=== PATIENT | male | born 1955 | race Two or more races ===

== ENCOUNTER 2024-08-23 14:01 | Inpatient (IN) | payer OTHER ==
[~2024-08-23] VITALS: Ht 160 cm; Wt 62.6 kg
[2024-08-23 18:30] VITALS: BP 135/76; PULSE 73; RESP 18; TEMP 98; O2SAT 98
[2024-08-23] MEDS ORDERED: DEXTROSE 50%-WATER 25 GM/50 ML SYRINGE IVP PRN (18:30)
[2024-08-23] MEDS ORDERED: ACETAMINOPHEN 325 MG TABLET PO PRN (18:30)
[2024-08-23] MEDS: ETHYL ALCOHOL 62% ANTISEPTIC NASAL SANITIZER 0.6 ML AMPUL NASAL SCH (20:51)
[2024-08-23] MEDS: INSULIN LISPRO 100 UNITS/ML SQ PRN (20:51)
[2024-08-23] MEDS: FAMOTIDINE 20 MG TABLET PO SCH (20:51)
[2024-08-23] MEDS: LevETIRAcetam 500 MG TABLET PO SCH (20:52)
[2024-08-23] MEDS: DEXAMETHASONE 4 MG TABLET PO SCH (20:52)
[2024-08-23 20:54] VITALS: BP 138/70; PULSE 74; RESP 18; TEMP 97.9; O2SAT 99
[2024-08-23 22:26] LABS: GLUCOMETER DEV NAME(LOC) 2WR.2B; GLUCOSE,POINT OF CARE 210 MG/DL (70-110)
[2024-08-24 05:50] VITALS: O2SAT 99
[2024-08-24 06:45] LABS: GLUCOMETER DEV NAME(LOC) 2WR.1D; GLUCOSE,POINT OF CARE 157 MG/DL (70-110)
[2024-08-24 08:01] LABS: BASOPHILS % (AUTO) 0.1 % (0.0-2.0); EOSINOPHILS % (AUTO) 0 % (1.0-6.0); HEMATOCRIT 44.6 % (41-53); HEMOGLOBIN 15.3 g/dL (13.5-17.5); LYMPHOCYTES # (AUTO) 0.8 K/uL (1.0-4.8); LYMPHOCYTES % (AUTO) 7.2 % (22.0-44.0); MEAN CORPUSCULAR HEMOGLOBIN 32.3 pg (26.0-34.0); MEAN CORPUSCULAR HGB CONC 34.3 G/dL (31.0-37.0); MEAN CORPUSCULAR VOLUME 94 fL (80-100); MONOCYTES # (AUTO) 0.4 K/uL (0.1-1.0); MONOCYTES % (AUTO) 4.1 % (2.0-9.0); NEUTROPHILS # (AUTO) 9.7 K/uL (1.8-7.7); PLATELET COUNT (AUTO) 254 K/uL (150-450); RED BLOOD CELL COUNT(AUTO) 4.73 MIL/uL (4.50-5.90); RED CELL DISTRIBUTION WIDTH 13.8 % (11.5-14.5); WHITE BLOOD COUNT (AUTO) 10.9 K/uL (4.5-11.0)
[2024-08-24 08:05] LABS: NEUTROPHILS % (AUTO) 88.6 % (40.0-70.0)
[2024-08-24] MEDS: AmLODIPine BESYLATE 5 MG TABLET PO SCH (08:06)
[2024-08-24] MEDS: ENOXAPARIN SODIUM 40 MG/0.4 ML PF SYRINGE SQ SCH (08:06)
[2024-08-24 08:16] LABS: ALANINE AMINOTRANSFERASE 74 U/L (12-78); ALBUMIN 2.8 g/dL (3.4-5.0); ALKALINE PHOSPHATASE 75 U/L (46-116); ANION GAP 6 mmol/L (8-16); ASPARTATE AMINOTRANSFERASE 21 U/L (15-37); BILIRUBIN,TOTAL 0.9 mg/dL (0.1-1.0); CALCIUM, TOTAL 8.4 mg/dL (8.8-10.5); CARBON DIOXIDE 29 mmol/L (22-29); CHLORIDE 103 mmol/L (98-107); CREATININE 0.85 mg/dL (0.60-1.30); GLOMERULAR FILTR. RATE CALC > 60 mL/min (>60); GLUCOSE,RANDOM 138 mg/dL (70-110); POTASSIUM 4.3 mmol/L (3.5-5.1); SODIUM SERUM 138 mmol/L (136-145); TOTAL PROTEIN, SERUM 6.1 g/dL (6.4-8.2); UREA NITROGEN, BLOOD 20 mg/dL (7-18)
[2024-08-24 08:59] VITALS: BP 144/70; PULSE 70; RESP 18; TEMP 97.7; O2SAT 98
[2024-08-24 11:32] VITALS: O2SAT 98
[2024-08-24 11:35] VITALS: BP 128/74; PULSE 83; RESP 18; TEMP 98; O2SAT 98
[2024-08-24 12:01] LABS: GLUCOMETER DEV NAME(LOC) 2WR.2B; GLUCOSE,POINT OF CARE 128 MG/DL (70-110)
[2024-08-24 19:35] VITALS: BP 139/70; PULSE 65; RESP 18; TEMP 98; O2SAT 98
[2024-08-24 19:46] LABS: GLUCOMETER DEV NAME(LOC) 2WR.1D; GLUCOSE,POINT OF CARE 132 MG/DL (70-110)
[2024-08-24] MEDS: SENNOSIDES 8.8 MG/5 ML SYRUP UDCUP PO SCH (21:00)
[2024-08-24] MEDS: DOCUSATE SODIUM 100 MG CAPSULE PO SCH (21:39)
[2024-08-24 22:56] VITALS: O2SAT 98
[2024-08-25] VITALS (7 sets, daily range): BP systolic 125–133; BP diastolic 67–77; PULSE 68–78; RESP 18; TEMP 97.3–98.4; O2SAT 98–99
[2024-08-25 02:26] LABS: GLUCOMETER DEV NAME(LOC) 2WR.2B; GLUCOSE,POINT OF CARE 129 MG/DL (70-110)
[2024-08-25 06:55] LABS: GLUCOMETER DEV NAME(LOC) 2WR.2B; GLUCOSE,POINT OF CARE 118 MG/DL (70-110)
[2024-08-25] MEDS: DEXAMETHASONE 4 MG TABLET PO SCH (07:22)
[2024-08-25 12:00] LABS: GLUCOMETER DEV NAME(LOC) 2WR.1D; GLUCOSE,POINT OF CARE 149 MG/DL (70-110)
[2024-08-25] MEDS: DOCUSATE SODIUM 283 MG/5 ML MINI-ENEMA PR PRN (18:45)
[2024-08-26 08:00] VITALS: BP 129/75; PULSE 62; RESP 19; TEMP 97.7; O2SAT 100
[2024-08-26 09:49] VITALS: BP 129/75; PULSE 62; RESP 19; TEMP 97.7; O2SAT 100
[2024-08-26 20:04] VITALS: BP 125/79; PULSE 66; RESP 18; TEMP 98.4; O2SAT 99
[2024-08-27] VITALS (10 sets, daily range): BP systolic 125–145; BP diastolic 76–79; PULSE 57–70; RESP 18; TEMP 97.6–98.4; O2SAT 97–100
[2024-08-27 07:35] LABS: CHOL/HDL RATIO 2.5 (4.2-7.3)
[2024-08-28 09:00] VITALS: BP 135/84; PULSE 96; RESP 18; TEMP 98.3; O2SAT 99
[2024-08-28] MEDS: OMEGA-3/DHA/EPA/FISH OIL 1,000 MG CAPSULE PO SCH (09:31)
[2024-08-28] MEDS: MULTIVITAMINS WITH MINERALS, THERAPEUTIC TABLET PO SCH (09:31)
[2024-08-28] MEDS: DOCUSATE SODIUM 250 MG CAPSULE PO SCH (09:32)
[2024-08-28 09:51] VITALS: BP 135/84; PULSE 96; RESP 18; TEMP 98.3; O2SAT 99
[2024-08-28 20:00] VITALS: BP 126/76; PULSE 67; RESP 18; TEMP 98.2; O2SAT 100; O2SAT 97
[2024-08-28 23:45] VITALS: BP 126/76; PULSE 67; RESP 18; TEMP 98.2; O2SAT 97
[2024-08-29 08:00] VITALS: BP 126/61; PULSE 54; RESP 19; TEMP 97.4; O2SAT 100
[2024-08-29 20:40] VITALS: BP 141/78; PULSE 62; RESP 18; TEMP 97.7; O2SAT 100
[2024-08-29 22:06] VITALS: O2SAT 100
[2024-08-30 08:00] VITALS: BP 140/73; PULSE 65; RESP 18; TEMP 98.2; O2SAT 100
[2024-08-30 20:00] VITALS: BP 125/76; PULSE 83; RESP 19; TEMP 97.8; O2SAT 99
[2024-08-31 08:00] VITALS: BP 134/74; PULSE 63; RESP 18; TEMP 98.1; O2SAT 100
[2024-08-31 19:50] VITALS: BP 144/75; PULSE 71; RESP 18; TEMP 98.2; O2SAT 99
[2024-08-31 21:47] VITALS: O2SAT 99
[2024-09-01 08:01] VITALS: BP 125/62; PULSE 61; RESP 18; TEMP 98.2; O2SAT 100
[2024-09-01 08:02] VITALS: O2SAT 100
[2024-09-01 19:30] VITALS: BP 122/70; PULSE 76; RESP 18; TEMP 97.9; O2SAT 100
[2024-09-01 21:06] VITALS: O2SAT 100
[2024-09-01 21:12] VITALS: O2SAT 100
[2024-09-02 08:05] VITALS: BP 127/77; PULSE 68; RESP 18; TEMP 98; O2SAT 98
[2024-09-02 18:19] VITALS: O2SAT 98
[2024-09-02 19:58] VITALS: BP 128/72; PULSE 69; RESP 18; TEMP 98; O2SAT 98
[2024-09-02 21:30] VITALS: O2SAT 98
[2024-09-03 08:05] VITALS: BP 121/69; PULSE 69; RESP 18; TEMP 98.1; O2SAT 98
[2024-09-03 10:32] VITALS: O2SAT 98
[2024-09-03 20:02] VITALS: BP 124/69; PULSE 67; RESP 18; TEMP 97.9; O2SAT 99
[2024-09-03 22:21] VITALS: O2SAT 99
[2024-09-04 08:00] VITALS: BP 146/75; PULSE 66; RESP 18; TEMP 97.7; O2SAT 100
[2024-09-04] MEDS: SENNOSIDES 8.6 MG TABLET PO SCH (20:32)
[2024-09-04] MEDS: ENOXAPARIN SODIUM 40 MG/0.4 ML PF SYRINGE SQ ONE (20:32)
[2024-09-04 20:42] VITALS: BP 132/72; PULSE 71; RESP 18; TEMP 97.5; O2SAT 100
[2024-09-04 21:36] VITALS: O2SAT 100
[2024-09-05 08:00] VITALS: BP 130/61; PULSE 68; RESP 18; TEMP 98.3; O2SAT 100
[2024-09-05] MEDS: ENOXAPARIN SODIUM 40 MG/0.4 ML PF SYRINGE SQ SCH (08:31)
[2024-09-05] MEDS ORDERED: MULT-1303 PO (10:12)
[2024-09-05] MEDS ORDERED: AMLO-257 PO (10:12)
[2024-09-05 19:40] VITALS: BP 130/83; PULSE 74; RESP 18; TEMP 98.2; O2SAT 99
[2024-09-06 00:24] VITALS: O2SAT 99
[2024-09-06 08:05] VITALS: BP 131/74; PULSE 78; RESP 18; TEMP 98.6; O2SAT 98
[2024-09-06 11:03] VITALS: O2SAT 98
== END 2024-09-06 16:33 | disposition home or self-care (01) | DRG 57 ==
LOC: 2WR 18:21
PROVIDERS: ADMIT Physical Medicine & Rehabilitation; ATTEND Physical Medicine & Rehabilitation
DX: G81.94 Hemiplegia, unspecified affecting left nondominant side (principal); E46 Unspecified protein-calorie malnutrition; C71.9 Malignant neoplasm of brain, unspecified; I10 Essential (primary) hypertension; E78.5 Hyperlipidemia, unspecified; N40.0 Benign prostatic hyperplasia without lower urinary tract symptoms; R13.10 Dysphagia, unspecified; R41.89 Other symptoms and signs involving cognitive functions and awareness; R48.2 Apraxia; Z74.09 Other reduced mobility; F43.20 Adjustment disorder, unspecified; K59.00 Constipation, unspecified; Z85.841 Personal history of malignant neoplasm of brain; Z68.31 Body mass index [BMI] 31.0-31.9, adult
CPT/HCPCS: 80053; 80061; 82962; 85025; 87081; 92507; 92523; 92610; 97032; 97112; 97116; 97150; 97163; 97167; 97530; 97535; 99366; J1650; J8540